=== PATIENT | female | born 1985 | race American Indian/Alaskan Native ===

== ENCOUNTER 2017-10-25 19:08 | Emergency (ER) | payer OTHER ==
[2017-10-25 19:30] VITALS: BP 107/75
[2017-10-25] MEDS ORDERED: ZOFRAN ODT PO ONE (19:34)
[2017-10-25 19:58] LABS: HCG Qualitative,Urine Negative (Negative)
--- NOTE | 2017-10-25 22:01 | XRay Report ---
FINAL REPORT PROCEDURE: XR PELVIS 1-2V TECHNIQUE: Pelvis radiograph, AP view. CPT 50291 HISTORY: left hip pain. COMPARISON: No prior studies are available for comparison. FINDINGS: Fracture(s): None . Joint spaces: Normal . Soft tissues: Normal . Foreign bodies: None . Bone mineralization: Normal . IMPRESSION: Normal Examination
[2017-10-25] MEDS ORDERED: MOTRIN PO ONE (23:05)
--- NOTE | 2017-10-25 23:11 | Emergency Department Report ---
ED Fall HPI - General Chief Complaint: Fall Stated Complaint: LEFT SIDE HURTS/FALL Time Seen by Provider: 10/25/17 23:04 Source: patient, EMS Mode of arrival: Stretcher - History of Present Illness Initial Comments: 32-year-old -[place] female comes in for complaint of left side and buttock pain. Patient reports that prior to coming in she had a fall at [employer] when she was lifting a box of water and fell backwards and now having left buttocks pain. She denies any past medical history currently takes no medications has no known drug allergies. MD Complaint: fall Fall From: standing When Fall Occurred: 1-[address] Fall Occurred: other ([place]) Loss of Consciousness: none Prolonged Down Time?: no Location: buttocks Location - Extremities: Left: Leg (thigh) Severity scale (0 -10): 8 Quality: burning Associated Symptoms: denies - Related Data Previous Rx's Medication Instructions Recorded Last Taken Type Ibuprofen [Motrin 800 MG tab] 800 mg PO TID PRN #30 tablet 10/25/17 Unknown Rx Allergies Allergy/AdvReac Type Severity Reaction Status Date / Time No Known Allergies Allergy Unverified 10/25/17 19:30 ED Review of Systems ROS: Stated complaint: LEFT SIDE HURTS/FALL Other details as noted in HPI Constitutional: denies: chills, fever Eyes: denies: eye pain, eye discharge, vision change ENT: denies: ear pain, throat pain Respiratory: denies: cough, shortness of breath, wheezing Cardiovascular: denies: chest pain, palpitations Endocrine: no symptoms reported Gastrointestinal: denies: abdominal pain, nausea, diarrhea Genitourinary: denies: urgency, dysuria, discharge Musculoskeletal: myalgia, other (left buttock that radiates down her left thigh) Skin: denies: rash, lesions Neurological: numbness (numbness to the left upper buttocks and thigh). denies : headache, weakness, paresthesias Psychiatric: denies: anxiety, depression Hematological/Lymphatic: denies: easy bleeding, easy bruising ED Past Medical Hx - Past Medical History Previous Medical History?: No - Surgical History Past Surgical History?: No - Social History Smoking Status: Never Smoker - Medications Home Medications: Home Medications Medication Instructions Recorded Confirmed Last Taken Type Ibuprofen [Motrin 800 MG tab] 800 mg PO TID PRN #30 tablet 10/25/17 Unknown Rx ED Physical Exam - General Limitations: No Limitations General appearance: alert, in no apparent distress - Head Head exam: Present: atraumatic, normocephalic - Eye Eye exam: Present: normal appearance - ENT ENT exam: Present: mucous membranes moist - Expanded Lower Extremity Exam Left Hip exam: Present: full ROM. Absent: tenderness Upper Leg exam: Present: normal inspection, full ROM, tenderness (left buttocks to the thigh) Knee exam: Present: normal inspection Lower Leg exam: Present: normal inspection Ankle exam: Present: normal inspection Foot/Toe exam: Present: normal inspection Neuro vascular tendon exam: Present: no vascular compromise - Expanded Back Exam Expanded Back exam: Positive Straight Leg Raise: Left ED Course Vital Signs 10/25/17 19:23 Temperature 98.9 F Pulse Rate 71 Respiratory 16 Rate Blood Pressure 107/75 O2 Sat by Pulse 99 Oximetry Critical care attestation.: If time is entered above; I have spent that time in minutes in the direct care of this critically ill patient, excluding procedure time. ED Disposition Clinical Impression: Sciatica of left side Fall Qualifiers: Encounter type: initial encounter Qualified Code(s): W19.XXXA - Unspecified fall, initial encounter Disposition: DC-01 TO HOME OR SELFCARE Is pt being admited?: No Does the pt Need Aspirin: No Condition: Stable Instructions: Sciatica (ED), Lumbar Radiculopathy (ED) Additional Instructions: Please take medication as prescribed. Please do stretches to help alleviate the pain. You can place ice also to help with the discomfort. Prescriptions: Ibuprofen [Motrin 800 MG tab] 800 mg PO TID PRN #30 tablet PRN Reason: Pain Referrals: FAUSTO CRUZ MD [Primary Care Provider] - 3-5 Days Forms: Work/School Release Form(ED), Accompanied Note
== END 2017-10-25 23:38 | disposition home or self-care (01) ==
LOC: ED 19:08
DX: M54.32 Sciatica, left side (principal)
CPT/HCPCS: 72170; 81025; Q0162